=== PATIENT | male | born 1985 | race Caucasian/White ===

== ENCOUNTER 2017-03-01 17:15 | Emergency (ER) | payer BC ==
[~2017-03-01] VITALS: Ht 188 cm; Wt 105.0 kg
[~2017-03-01 17:15] MED LIST: AMPH20TA2 PO; CEPH-507 PO; CEPH500T PO; HYDR-3702 PO; NO ROUTINE HOME MEDS; TRM50T PO
--- OUTSIDE RECORDS SUMMARY | 2017-03-01 17:19 | XMS REPORT | Continuity of Care Document ---
Author Author [facility] Address Unknown Phone Unavailable Allergies Active Description Code Type Severity Reaction Onset Reported/Identified Relationship to Patient Clinical Status Yes No Known Drug Allergies [id number] Drug Allergy Unknown N/ A 03/27/2016 Medications Problems Date Dx Coded Attending Type Code Diagnosis Diagnosed By 05/02/2012 Ot 682.6 06/14/2013 FABIANA MCCAULEY DO Ot 682.6 06/14/2013 FABIANA CMCAULEY DO Ot 959.7 03/28/2015 FABIANA MCCAULEY DO Ot 882.1 03/28/2015 FABIANA MCCAULEY DO Ot E849.0 03/28/2015 FABIANA MCCAULEY DO Ot E917.4 03/28/2015 Ot 682.5 03/28/2016 ROSEMARIE VELASCO MD Ot K35.3 ACUTE APPENDICITIS WITH LOCALIZED PERITO 03/28/2016 ROSEMARIE VELASCO MD Ot Z87.891 PERSONAL HISTORY OF NICOTINE DEPENDENCE 04/02/2016 ROSEMARIE VELASCO MD Ot K35.3 ACUTE APPENDICITIS WITH LOCALIZED PERITO 04/02/2016 ROSEMARIE VELASCO MD Ot Z87.891 PERSONAL HISTORY OF NICOTINE DEPENDENCE 04/03/2016 ROSEMARIE VELASCO MD Ot K35.3 ACUTE APPENDICITIS WITH LOCALIZED PERITO 04/03/2016 ROSEMARIE VELASCO MD Ot Z87.891 PERSONAL HISTORY OF NICOTINE DEPENDENCE Procedures Results Encounters ACCT No. Visit Date/Time Discharge Status Pt. Type Provider Facility Loc./Unit Complaint [id number] 03/27/2016 22:49:00 2015 09:48:00 DIS Outpatient ROSEMARIE VELASCO MD [facility] [id number] 03/28/2015 17:24:00 2014 18:19:00 DIS Emergency [place] FABIANA MARTINEZ [facility] ED [id number] 06/14/2013 07:27:00 2012 08:00:00 DIS Emergency FABIANA MCCAULEY DO [facility] ED [id number] 05/04/2012 11:43:00 Document Registration [id number] 05/02/2012 21:10:00 Document Registration
--- OUTSIDE RECORDS SUMMARY | 2017-03-01 17:20 | XMS REPORT | Continuity of Care Document ---
Author Author [facility] Address Unknown Phone Unavailable Allergies Active Description Code Type Severity Reaction Onset Reported/Identified Relationship to Patient Clinical Status Yes No Known Drug Allergies [id number] Drug Allergy Unknown N/ A 03/27/2016 Medications Problems Date Dx Coded Attending Type Code Diagnosis Diagnosed By 05/02/2012 Ot 682.6 06/14/2013 FABIANA MCCAULEY DO Ot 682.6 06/14/2013 FABIANA MCCAULEY DO Ot 959.7 03/28/2015 FABIANA MCCAULEY DO [...] Status Pt. Type Provider Facility Loc./Unit Complaint [id number] 03/27/2016 22:49:00 2015 09:48:00 DIS Outpatient ROSEMARIE VELASCO MD [facility] ASC [id number] 03/28/2015 17:24:00 2014 18:19:00 DIS Emergency [place] FABIANA MARTINEZ [facility] ED [id number] 06/14/2013 07:27:00 2012 08:00:00 DIS Emergency FABIANA MCCAULEY DO [facility] ED [id number] 05/04/2012 11:43:00 Document Registration [id number] 05/02/2012 21:10:00 Document Registration
--- NOTE | 2017-03-01 17:45 | NUR ---
20 GA INSYTE TO BACK OF LT HAND BY Awais PALENCIA, LOU.
[2017-03-01] MEDS ORDERED: SODIUM CHLORIDE FLUSH 10 ML SYR IV PRN (17:55)
[2017-03-01] MEDS ORDERED: PRED10TA PO (18:02)
[2017-03-01] MEDS ORDERED: MULT-890 PO (18:02)
[2017-03-01 22:13] VITALS: BP 104/52
--- NOTE | 2017-03-02 09:10 | Diagnostic Imaging Report ---
INDICATION: Chest pain PA and lateral chest Heart size and pulmonary vascularity are normal. Lungs are clear. There are no effusions or pneumothoraces. IMPRESSION: Negative chest Dictated by: Dictated on workstation # [id number]
== END 2017-03-01 19:13 | disposition home or self-care (01) ==
LOC: ED 17:16
DX: R07.89 Other chest pain (principal); F17.210 Nicotine dependence, cigarettes, uncomplicated
CPT/HCPCS: 71020; 93005; 93010; 99283; 99284

== ENCOUNTER → 2017-03-04 | Outpatient (CLI) | payer BC ==
[~2017-03-04] MED LIST changes: +MULT-890 PO; +PRED10TA PO
[2017-03-04 08:18] LABS: ALBUMIN 4.2 g/dL (3.4-5.0); ALKALINE PHOSPHATASE 57 U/L (38-126); ANION GAP 14.3 MEQ/L (3-15); BUN/CREATININE RATIO 12 (10-20); CALCULATED IONIZED CALCIUM 4.3 mg/dL (3.8-4.6)
[2017-03-04 08:29] LABS: BASOPHILS % (AUTO) 0 % (0-2); EOSINOPHILS # (AUTO) 0.1 10^3uL; EOSINOPHILS % (AUTO) 2 % (0-4); LYMPHOCYTES # (AUTO) 2.1 X10^3; MEAN CORPUSCULAR HEMOGLOBIN 30.2 PG (26.0-34.0); MEAN CORPUSCULAR HGB CONC 33.6 g/dL (31.0-37.0); MEAN CORPUSCULAR VOLUME 90 FL (80-100); MEAN PLATELET VOLUME 11.4 FL (6.0-9.5); MONOCYTES # (AUTO) 0.7 X10^3; MONOCYTES % (AUTO) 10 % (3-11); NEUTROPHILS # (AUTO) 3.7 X10^3; NEUTROPHILS % (AUTO) 56 % (51-67); PLATELET COUNT 214 10^3uL (150-450); WHITE BLOOD COUNT 6.58 10^3uL (4.0-11.0)
== END ==
LOC: LAB 07:38
PROVIDERS: ATTEND Family Medicine
DX: Z00.00 Encounter for general adult medical examination without abnormal findings (principal)
CPT/HCPCS: 36415; 80053; 80061; 84443; 85025